=== PATIENT | male | born 1945 | race African-American/Black ===

== ENCOUNTER 2019-07-30 11:43 | Emergency (ER) | payer MEDICARE ==
[~2019-07-30] VITALS: Ht 185.4 cm; Wt 82.0 kg
[~2019-07-30 11:43] MED LIST: ASPI-1497 PO; COR3 PO; POTA10CA42 PO; SIMV-46 PO
[2019-07-30] MEDS ORDERED: ALBUTEROL (0.083%) 2.5MG/3ML NEB HHN STA ×2 (12:25→15:41)
[2019-07-30] MEDS ORDERED: IPRATROPIUM BROMIDE (0.02%) 0.5MG/2.5ML NEB HHN STA (12:25)
[2019-07-30] MEDS ORDERED: METHYLPREDNISOLONE SOD SUCC 125 MG/2 ML VIAL IV STA (12:25)
[2019-07-30] MEDS ORDERED: SODIUM CHLORIDE 0.9% 1000ML BAG (SEPSIS BOLUS) IV ONE (12:30)
[2019-07-30] MEDS ORDERED: LEVOFLOXACIN 750MG PREMIX 150 ML IV ONE (12:30)
[2019-07-30 12:57] LABS: HEMATOCRIT. 48.1 % (42.0-52.0); HEMOGLOBIN. 15.4 g/dL (14.0-18.0); MEAN CORPUSCULAR HEMOGLOBIN 27.2 pg (28.0-32.0); MEAN PLATELET VOLUME 8.6 fl (7.4-10.4); PLATELET 218 x1000/uL (130-400); RED BLOOD CELL COUNT 5.66 mill/uL (4.7-6.1); RED CELL DISTRIBUTION WIDTH 18.8 % (11.6-14.6)
[2019-07-30 13:02] LABS: CLARITY URINE CLEAR (CLEAR); COLOR URINE YELLOW (YELLOW); KETONES URINE NEGATIVE (NEGATIVE); LEUKOCYTE ESTERASE URINE NEGATIVE (NEGATIVE); NITRITE URINE NEGATIVE (NEGATIVE); OCCULT BLOOD URINE 1+ (NEGATIVE); PROTEIN URINE 2+ (NEGATIVE); SPECIFIC GRAVITY URINE 1.016 (1.005-1.030); UROBILINOGEN URINE 0.2 E.U./dL (0.2-1.0)
[2019-07-30 13:06] LABS: CHLORIDE 104 mEq/L (98-107)
[2019-07-30 14:50] LABS: PLATELET ESTIMATE NORMAL
[2019-07-30] MEDS ORDERED: ASPIRIN 81MG TABLET PO ONE (16:00)
[2019-07-30 21:00] VITALS: BP 164/94
== END 2019-07-30 22:45 | disposition left against medical advice (07) ==
LOC: ER 12:43
DX: J45.901 Unspecified asthma with (acute) exacerbation (principal); I10 Essential (primary) hypertension; I51.9 Heart disease, unspecified; F12.90 Cannabis use, unspecified, uncomplicated; Z95.0 Presence of cardiac pacemaker; Z79.82 Long term (current) use of aspirin; Z79.899 Other long term (current) drug therapy
CPT/HCPCS: 36415; 71045; 80053; 81003; 83605; 84145; 84484; 85025; 87040; 87086; 87804; 93005; 94640; 94644; 96365; 96366; 96375; 99285; J1956; J2930; J7030; J7611